=== PATIENT | male | born 1965 | race Caucasian/White ===

== ENCOUNTER → 2017-06-25 | Outpatient (CLI) | payer OTHER ==
--- NOTE | 2017-06-25 13:34 | KCIC ---
Arthritic series HISTORY: Psoriasis. Single view lateral cervical spine C1-C7 are seen. This image was obtained with flexion. Disc spaces are maintained through C7. No aggressive bone destruction. No prevertebral soft tissue swelling. No significant subluxation. Single views standing AP pelvis Joint spaces intact. No aggressive bone destruction. No significant soft tissue abnormality. Bilateral AP single views standing knee Medial and lateral joint compartments are maintained. No evidence of bone destruction or significant bone production. Bilateral single view AP hand Joint spaces and alignment are intact. No significant soft tissue abnormality. No evidence of bone destruction or significant bone production. Bilateral single view oblique feet Moderate primary osteoarthritis of the left first MTP joint. Minimal marginal spurring at the right first MTP joint. Joint spaces otherwise intact. No evidence of bone destruction. Calcaneal enthesophytes are noted bilaterally. IMPRESSION: 1. 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 2. No other significant abnormality. Electronically signed by: Dima Barnhart MD (06/25/2017 1:31 PM) [id number]
== END | disposition home or self-care (01) ==
LOC: KCIC 12:49
PROVIDERS: ATTEND Internal Medicine Rheumatology
DX: M19.072 Primary osteoarthritis, left ankle and foot (principal); L40.9 Psoriasis, unspecified
CPT/HCPCS: 72020; 72170; 73120; 73565; 73620

== ENCOUNTER → 2018-01-08 | Outpatient (CLI) | payer OTHER | END | disposition home or self-care (01) | LOC: KCIC 14:52 | DX: M25.542 Pain in joints of left hand (principal); M25.541 Pain in joints of right hand; M79.89 Other specified soft tissue disorders | CPT/HCPCS: 73130 ==